=== PATIENT | female | born 1960 | race Caucasian/White ===

== ENCOUNTER → 2016-10-01 | Outpatient (CLI) | payer OTHER | LOC: KOH-I 09-05 15:15 | DX: M25.572 Pain in left ankle and joints of left foot (principal); R93.8 Abnormal findings on diagnostic imaging of other specified body structures | CPT/HCPCS: 73721 ==

== ENCOUNTER → 2020-05-02 | Outpatient (CLI) | payer OTHER ==
[~2020-05-02] MED LIST: ALPRAZOLAM0.5 MG PO; BACTRIM DS TAB1 EACH PO; BACTROBAN OINT22 GM EXT; CELEXA40 MG PO; CEPHALEXIN500 M1 PO; CYCLOBENZAPRINE10 MG PO; IBUPROFEN400 MG PO; IMODIUM A-1 MG/7.5 M PO; K-TAB ER20 MEQ PO; LEVOFLOXACIN500 MG PO; LODINE CAP 300300 MG PO; MIRALAX17 GM PO; MOBIC15 MG PO; MORPHINE SULFAT15 M1 PO; MYCOSTATIN CREA15 GM TOP; NEURONTIN600 MG PO; NORFLEX 100 MG100 MG PO; PEPCID40 MG PO; PHENERGAN 25 MG25 M1 PO; PROTONIX 40 MG40 M1 PO; PYRIDIUM100 MG PO; SILVADENE CREAM20 GM TOP; SINGULAIR10 MG PO; SYMBICORT 16010.2 GM INH; SYNTHROID25 MCG PO; TYLENOL325 M1 PO; VISTARIL 25 MG25 MG PO; VITAMIN D350 MCG PO; ZOFRAN ODT 4 MG4 MG PO; ZOFRAN ODT 4 MG4 MG SL; ZYRTEC10 M3 PO
== END ==
LOC: NM 04-11 09:00
DX: M54.9 Dorsalgia, unspecified (principal); M79.605 Pain in left leg; M79.604 Pain in right leg; C96.A Histiocytic sarcoma; R93.6 Abnormal findings on diagnostic imaging of limbs
CPT/HCPCS: 78306; A9503

== ENCOUNTER 2020-06-22 09:03 | Emergency (ER) | payer OTHER ==
[~2020-06-22 09:03] MED LIST changes: -LEVOFLOXACIN500 MG PO; -PROTONIX 40 MG40 M1 PO; -SILVADENE CREAM20 GM TOP
[2020-06-22] MEDS ORDERED: CEPHALEXIN500 M1 PO (11:56)
[2020-06-22] MEDS ORDERED: BACTROBAN OINT22 GM EXT (11:56)
== END 2020-06-22 12:10 | disposition home or self-care (01) ==
LOC: ER1 09:03
DX: L01.00 Impetigo, unspecified (principal); K21.9 Gastro-esophageal reflux disease without esophagitis; Z90.710 Acquired absence of both cervix and uterus; Z88.1 Allergy status to other antibiotic agents; Z91.040 Latex allergy status; Z88.8 Allergy status to other drugs, medicaments and biological substances; Z79.899 Other long term (current) drug therapy
CPT/HCPCS: 99282

== ENCOUNTER 2020-06-24 11:42 | Inpatient (IN) | payer OTHER ==
[~2020-06-24] VITALS: Ht 157.5 cm; Wt 81.6 kg
[2020-06-24 12:38] LABS: RED BLOOD COUNT 4.71 M/UL (4.00-5.10); WHITE BLOOD COUNT 23.4 K/UL (4.5-11.0)
[2020-06-24] MEDS ORDERED: PROTONIX 40 MG40 M1 PO (17:01)
[2020-06-25 01:33] LABS: RED BLOOD COUNT 4.39 M/UL (4.00-5.10)
[2020-06-25 01:56] LABS: WHITE BLOOD COUNT 38.6 K/UL (4.5-11.0)
[2020-06-25 03:40] LABS: ACINETOBACTER BAUMANNII Not Detected (Negative); CANDIDA ALBICANS Not Detected (Negative); CANDIDA KRUSEI Not Detected (Negative); CANDIDA TROPICALIS Not Detected (Negative); ENTEROCOCCUS Not Detected (Negative); ESCHERICHIA COLI Not Detected (Negative); HAEMOPHILUS INFLUENZAE Not Detected (Negative); KLEBSIELLA OXYTOCA Not Detected (Negative); KLEBSIELLA PNEUMONIAE Not Detected (Negative); KPC-CARBAPENEM-RESISTANCE GENE Not Detected (Negative); PROTEUS Not Detected (Negative); PSEUDOMONAS AERUGINOSA Not Detected (Negative); SERRATIA MARCESANS Not Detected (Negative); STAPHYLOCOCCUS Not Detected (Negative); STAPHYLOCOCCUS AUREUS Not Detected (Negative); STREP AGALACTIAE (GROUP B) Not Detected (Negative); mecA (METHICILLIN RESIST GENE Not Detected (Negative); vanA/B (VANCOMYCIN RESIST GENE Not Detected (Negative)
[2020-06-25 03:43] LABS: STREP PYOGENES (GROUP A) DETECTED (Negative); STREPTOCOCCUS DETECTED (Negative)
[2020-06-25 08:16] LABS: HEMOGLOBIN 13.2 gm/dl (12.3-15.3); RED BLOOD COUNT 4.5 M/UL (4.00-5.10)
[2020-06-25 08:29] LABS: WHITE BLOOD COUNT 30.8 K/UL (4.5-11.0)
[2020-06-25 14:32] LABS: HEMOGLOBIN 11.5 gm/dl (12.3-15.3); RED BLOOD COUNT 4.05 M/UL (4.00-5.10)
[2020-06-26 05:15] LABS: HEMOGLOBIN 11.1 gm/dl (12.3-15.3); RED BLOOD COUNT 3.82 M/UL (4.00-5.10); WHITE BLOOD COUNT 21.1 K/UL (4.5-11.0)
[2020-06-27 04:58] LABS: HEMOGLOBIN 10.7 gm/dl (12.3-15.3); RED BLOOD COUNT 3.66 M/UL (4.00-5.10); WHITE BLOOD COUNT 21.7 K/UL (4.5-11.0)
[2020-06-28 05:13] LABS: HEMOGLOBIN 9.9 gm/dl (12.3-15.3); RED BLOOD COUNT 3.49 M/UL (4.00-5.10); WHITE BLOOD COUNT 16.6 K/UL (4.5-11.0)
[2020-06-29 05:02] LABS: HEMOGLOBIN 8.5 gm/dl (12.3-15.3)
[2020-06-29 05:16] LABS: RED BLOOD COUNT 2.92 M/UL (4.00-5.10); WHITE BLOOD COUNT 11.9 K/UL (4.5-11.0)
[2020-06-29 15:11] LABS: HEMATOCRIT 27.1 % (34.0-46.6)
[2020-06-30 05:00] LABS: HEMOGLOBIN 8.4 gm/dl (12.3-15.3); RED BLOOD COUNT 2.92 M/UL (4.00-5.10); WHITE BLOOD COUNT 11.5 K/UL (4.5-11.0)
[2020-06-30 10:13] LABS: HBSAG SCREEN Negative (Negative); HEP B CORE AB, TOT Negative (Negative); HEP C VIRUS AB >11.0 (0.0-0.9)
[2020-06-30 12:13] LABS: ANTISTREPTOLYSIN O AB <20.0 IU/mL (0.0-200.0); COMPLEMENT C3, SERUM 109 mg/dL (82-167); COMPLEMENT C4, SERUM 17 mg/dL (12-38)
[2020-06-30 14:13] LABS: ANTI-DSDNA ANTIBODIES <1 IU/mL (0-9)
[2020-06-30 16:13] LABS: A/G RATIO 1.6 (0.7-1.7); ALBUMIN 3.1 g/dL (2.9-4.4); ALPHA-1-GLOBULIN 0.3 g/dL (0.0-0.4); ALPHA-2-GLOBULIN 0.6 g/dL (0.4-1.0); ATYPICAL PANCA <1:20 titer (Neg:<1:20); BETA GLOBULIN 0.6 g/dL (0.7-1.3); CYTOPLASMIC (C-ANCA) <1:20 titer (Neg:<1:20); GAMMA GLOBULIN 0.4 g/dL (0.4-1.8); IMMUNOGLOBULIN A, QN, SERUM 50 mg/dL (87-352); IMMUNOGLOBULIN G, QN, SERUM 402 mg/dL (586-1602); IMMUNOGLOBULIN M, QN, SERUM 62 mg/dL (26-217); M-SPIKE Not Observed g/dL (Not Observed); PERINUCLEAR (P-ANCA) <1:20 titer (Neg:<1:20); PROTEIN, TOTAL, SERUM 5.1 g/dL (6.0-8.5)
[2020-06-30 16:13] LABS: HEPARIN INDUCED PLATELET AB 0.092 OD (0.000-0.400)
[2020-07-01 05:01] LABS: HEMOGLOBIN 8.6 gm/dl (12.3-15.3); RED BLOOD COUNT 3.02 M/UL (4.00-5.10); WHITE BLOOD COUNT 12.7 K/UL (4.5-11.0)
[2020-07-02 05:03] LABS: HEMOGLOBIN 7.4 gm/dl (12.3-15.3); WHITE BLOOD COUNT 10.2 K/UL (4.5-11.0)
[2020-07-02 05:06] LABS: RED BLOOD COUNT 2.6 M/UL (4.00-5.10)
[2020-07-03 04:51] LABS: HEMOGLOBIN 7.3 gm/dl (12.3-15.3); RED BLOOD COUNT 2.53 M/UL (4.00-5.10); WHITE BLOOD COUNT 12.1 K/UL (4.5-11.0)
[2020-07-03 05:54] LABS: BUN/CREATININE RATIO 51 (0-10)
[2020-07-04 04:18] LABS: HEMOGLOBIN 8.9 gm/dl (12.3-15.3)
[2020-07-04 04:24] LABS: RED BLOOD COUNT 3.09 M/UL (4.00-5.10); WHITE BLOOD COUNT 16.6 K/UL (4.5-11.0)
[2020-07-04 04:46] LABS: BUN/CREATININE RATIO 46 (0-10)
[2020-07-05 09:36] LABS: RED BLOOD COUNT 3.15 M/UL (4.00-5.10); WHITE BLOOD COUNT 17.6 K/UL (4.5-11.0)
[2020-07-05 10:12] LABS: BUN/CREATININE RATIO 32 (0-10)
[2020-07-06 03:10] LABS: HEMOGLOBIN 8.9 gm/dl (12.3-15.3); RED BLOOD COUNT 3.09 M/UL (4.00-5.10); WHITE BLOOD COUNT 14.5 K/UL (4.5-11.0)
[2020-07-06 03:48] LABS: BUN/CREATININE RATIO 32 (0-10)
[2020-07-07 04:24] LABS: RED BLOOD COUNT 3.19 M/UL (4.00-5.10); WHITE BLOOD COUNT 16.9 K/UL (4.5-11.0)
[2020-07-07 04:41] LABS: BUN/CREATININE RATIO 29 (0-10)
[2020-07-08 04:13] LABS: HEMOGLOBIN 8.3 gm/dl (12.3-15.3); RED BLOOD COUNT 2.91 M/UL (4.00-5.10); WHITE BLOOD COUNT 15.1 K/UL (4.5-11.0)
[2020-07-08 04:36] LABS: BUN/CREATININE RATIO 26 (0-10)
[2020-07-09 03:52] LABS: RED BLOOD COUNT 2.74 M/UL (4.00-5.10)
[2020-07-09 04:18] LABS: BUN/CREATININE RATIO 18 (0-10)
--- NOTE | 2020-07-10 20:10 | NUR ---
PATIENT WANTING TO LEAVE AMA. CALLED THE DAUGHTER HITESH AND SHE HAD ALREADY DROVE TO THE HOSPITAL THE PATIENT HAD CALLED HER FOR A RIDE. THE DAUGHTER WAS ALSO ATTEMPTING TO TALK THE PATIENT INTO STAYING AT THE HOSPITAL. THE PATIENT STATED SHE DID NOT WANT TO GO TO REHAB. SHE, INDEED, HAD BEEN UP IN THE ROOM WITH A STEADY GAIT WITH THE ASSIST OF A WALKER. THE PATIENT IS ALERT AND ORIENTED AT THIS TIME. AFTER A LONG DISCUSSION WITH THE PATIENT AND HER DAUGHTER, THE CONCLUSION WAS MADE THAT SHE WOULD STAY AND THAT DAUGHTER WOULD MAKE ARRANGEMENTS FOR HER TO STAY AT HER HOME.
[2020-07-11] MEDS ORDERED: LEVOFLOXACIN500 MG PO (12:16)
[2020-07-11 12:31] LABS: HEMOGLOBIN 8.9 gm/dl (12.3-15.3)
[2020-07-11 12:42] LABS: RED BLOOD COUNT 3.09 M/UL (4.00-5.10); WHITE BLOOD COUNT 12.6 K/UL (4.5-11.0)
[2020-07-11 12:55] LABS: BUN/CREATININE RATIO 18 (0-10)
== END 2020-07-11 17:49 | disposition home or self-care (01) | DRG 870 ==
LOC: ER1 11:42 → CDU 16:10 → CCU 16:10 → MED SURG 4 16:10 → CCU 21:13 → MED SURG 4 07-04 16:57
PROVIDERS: Internal Medicine; Internal Medicine Infectious Disease; Internal Medicine Nephrology; Internal Medicine Pulmonary Disease; Physician Assistant Medical; Registered Nurse; ADMIT Internal Medicine
PROC: 5A1955Z Respiratory Ventilation, Greater than 96 Consecutive Hours (ICD-10-PCS; principal; 2020-06-24)
PROC: 0BH17EZ Insertion of Endotracheal Airway into Trachea, Via Natural or Artificial Opening (ICD-10-PCS; 2020-06-24)
DX: A41.9 Sepsis, unspecified organism (principal); R65.21 Severe sepsis with septic shock; J80 Acute respiratory distress syndrome; G93.41 Metabolic encephalopathy; K72.00 Acute and subacute hepatic failure without coma; J18.9 Pneumonia, unspecified organism; N17.0 Acute kidney failure with tubular necrosis; L03.115 Cellulitis of right lower limb; E87.2 Acidosis; E87.0 Hyperosmolality and hypernatremia; K50.90 Crohn's disease, unspecified, without complications; D76.3 Other histiocytosis syndromes; M87.9 Osteonecrosis, unspecified; N30.00 Acute cystitis without hematuria; M62.82 Rhabdomyolysis; E87.1 Hypo-osmolality and hyponatremia; C86.3 Subcutaneous panniculitis-like T-cell lymphoma; E87.6 Hypokalemia; D53.9 Nutritional anemia, unspecified; F32.9 Major depressive disorder, single episode, unspecified; I10 Essential (primary) hypertension; I73.9 Peripheral vascular disease, unspecified; R73.9 Hyperglycemia, unspecified; D75.82 Heparin induced thrombocytopenia (HIT); E83.42 Hypomagnesemia; F19.10 Other psychoactive substance abuse, uncomplicated; E88.09 Other disorders of plasma-protein metabolism, not elsewhere classified; Z20.822 Contact with and (suspected) exposure to COVID-19; Z85.820 Personal history of malignant melanoma of skin; Z85.07 Personal history of malignant neoplasm of pancreas; Z85.118 Personal history of other malignant neoplasm of bronchus and lung; Y92.89 Other specified places as the place of occurrence of the external cause; Z85.830 Personal history of malignant neoplasm of bone; Z85.72 Personal history of non-Hodgkin lymphomas; Z90.710 Acquired absence of both cervix and uterus; Z90.89 Acquired absence of other organs; Z87.891 Personal history of nicotine dependence; Z88.1 Allergy status to other antibiotic agents; Z91.040 Latex allergy status; Z85.038 Personal history of other malignant neoplasm of large intestine
CPT/HCPCS: ECHO; 31500; 36415; 36600; 70450; 71045; 71250; 73552; 73590; 73700; 76705; 80048; 80053; 80307; 81001; 82140; 82550; 82553; 82570; 82607; 82728; 82747; 82784; 82803; 82962; 83520; 83540; 83550; 83605; 83615; 83690; 83735; 83874; 83880; 83883; 83921; 84100; 84132; 84133; 84155; 84156; 84165; 84300; 84443; 84484; 85007; 85025; 85027; 85384; 85610; 85730; 86038; 86060; 86140; 86160; 86162; 86225; 86256; 86334; 86704; 86706; 86708; 86803; 87040; 87070; 87077; 87086; 87150; 87186; 87205; 87340; 87521; 89050; 92526; 92610; 93005; 93306; 93926; 93971; 94002; 94003; 94640; 94664; 94760; 96365; 96366; 96367; 96368; 96375; 97110; 97110-GP-CQ; 97116; 97116-GP-CQ; 97162; 97166; 97530; 97530-GP-CQ; 99285; C9113; G0008; J0171; J0696; J0878; J1120; J1205; J1335; J1644; J1650; J1652; J1940; J2020; J2060; J2185; J2248; J2250; J2310; J2370; J2405; J2543; J2704; J2765; J3010; J3370; J3475; J3480; J7030; J7040; J7050; J7070; J7121; P9047; Q9967; U0002

== ENCOUNTER → 2020-07-14 | Outpatient (CLI) | payer OTHER ==
[~2020-07-14] MED LIST changes: +LEVOFLOXACIN500 MG PO; +PROTONIX 40 MG40 M1 PO; +SILVADENE CREAM20 GM TOP
== END ==
LOC: WCC 08:26
PROC: 0JBN0ZZ Excision of Right Lower Leg Subcutaneous Tissue and Fascia, Open Approach (ICD-10-PCS; principal; 2020-07-14)
DX: I96 Gangrene, not elsewhere classified (principal); L97.812 Non-pressure chronic ulcer of other part of right lower leg with fat layer exposed; L03.115 Cellulitis of right lower limb; B95.0 Streptococcus, group A, as the cause of diseases classified elsewhere; I10 Essential (primary) hypertension; M19.90 Unspecified osteoarthritis, unspecified site; M86.9 Osteomyelitis, unspecified; G62.9 Polyneuropathy, unspecified; C96.6 Unifocal Langerhans-cell histiocytosis; Z88.1 Allergy status to other antibiotic agents; Z88.8 Allergy status to other drugs, medicaments and biological substances; Z87.891 Personal history of nicotine dependence

== ENCOUNTER 2020-07-20 01:42 | Emergency (ER) | payer OTHER ==
[~2020-07-20 01:42] MED LIST changes: -SILVADENE CREAM20 GM TOP
[2020-07-20 03:16] LABS: HEMOGLOBIN 8.8 gm/dl (12.3-15.3); RED BLOOD COUNT 3.05 M/UL (4.00-5.10); WHITE BLOOD COUNT 15.7 K/UL (4.5-11.0)
[2020-07-20 03:36] LABS: BUN/CREATININE RATIO 15 (0-10)
[2020-07-20] MEDS ORDERED: SILVADENE CREAM20 GM TOP (04:04)
== END 2020-07-20 06:55 | disposition home or self-care (01) ==
LOC: ER1 01:42
PROVIDERS: Family Medicine
DX: L08.9 Local infection of the skin and subcutaneous tissue, unspecified (principal); Z88.1 Allergy status to other antibiotic agents
CPT/HCPCS: 71045; 80053; 82550; 82553; 83605; 84484; 85025; 87040; 96374; 99283

== ENCOUNTER → 2020-07-22 | Outpatient (CLI) | payer OTHER ==
[~2020-07-22] MED LIST changes: +SILVADENE CREAM20 GM TOP
== END ==
LOC: WCC 09:00
PROC: 0KBS0ZZ Excision of Right Lower Leg Muscle, Open Approach (ICD-10-PCS; principal; 2020-07-22)
DX: I96 Gangrene, not elsewhere classified (principal); L97.813 Non-pressure chronic ulcer of other part of right lower leg with necrosis of muscle; L03.115 Cellulitis of right lower limb; I10 Essential (primary) hypertension; C96.6 Unifocal Langerhans-cell histiocytosis; L08.89 Other specified local infections of the skin and subcutaneous tissue; B95.0 Streptococcus, group A, as the cause of diseases classified elsewhere; M86.9 Osteomyelitis, unspecified; G62.9 Polyneuropathy, unspecified; Z88.1 Allergy status to other antibiotic agents; Z88.8 Allergy status to other drugs, medicaments and biological substances; Z79.2 Long term (current) use of antibiotics

== ENCOUNTER → 2020-07-29 | Outpatient (CLI) | payer OTHER | LOC: WCC 08:51 | DX: L03.115 Cellulitis of right lower limb (principal); I87.2 Venous insufficiency (chronic) (peripheral); I10 Essential (primary) hypertension; K50.90 Crohn's disease, unspecified, without complications; I73.9 Peripheral vascular disease, unspecified; C96.6 Unifocal Langerhans-cell histiocytosis; B95.0 Streptococcus, group A, as the cause of diseases classified elsewhere ==

== ENCOUNTER → 2020-08-19 | Outpatient (CLI) | payer OTHER | LOC: WCC 11:30 | DX: I87.2 Venous insufficiency (chronic) (peripheral) (principal); L97.815 Non-pressure chronic ulcer of other part of right lower leg with muscle involvement without evidence of necrosis; L03.115 Cellulitis of right lower limb; I10 Essential (primary) hypertension; I73.9 Peripheral vascular disease, unspecified; K50.90 Crohn's disease, unspecified, without complications; R53.1 Weakness; C96.6 Unifocal Langerhans-cell histiocytosis; B95.0 Streptococcus, group A, as the cause of diseases classified elsewhere; Z88.5 Allergy status to narcotic agent; Z88.1 Allergy status to other antibiotic agents; Z79.2 Long term (current) use of antibiotics ==

== ENCOUNTER → 2020-08-29 | Outpatient (CLI) | payer OTHER | LOC: WCC 13:00 | DX: I87.2 Venous insufficiency (chronic) (peripheral) (principal); L97.812 Non-pressure chronic ulcer of other part of right lower leg with fat layer exposed; L03.115 Cellulitis of right lower limb; I10 Essential (primary) hypertension; I73.9 Peripheral vascular disease, unspecified; K50.90 Crohn's disease, unspecified, without complications; R53.1 Weakness; C96.6 Unifocal Langerhans-cell histiocytosis; B95.0 Streptococcus, group A, as the cause of diseases classified elsewhere; Z88.1 Allergy status to other antibiotic agents; Z88.5 Allergy status to narcotic agent; Z79.2 Long term (current) use of antibiotics ==

== ENCOUNTER → 2020-09-13 | Outpatient (CLI) | payer OTHER | LOC: WCC 13:30 | DX: I87.2 Venous insufficiency (chronic) (peripheral) (principal); L97.815 Non-pressure chronic ulcer of other part of right lower leg with muscle involvement without evidence of necrosis; L03.115 Cellulitis of right lower limb; I10 Essential (primary) hypertension; I73.9 Peripheral vascular disease, unspecified; K50.90 Crohn's disease, unspecified, without complications; C96.6 Unifocal Langerhans-cell histiocytosis; B95.0 Streptococcus, group A, as the cause of diseases classified elsewhere; R53.1 Weakness; Z88.1 Allergy status to other antibiotic agents; Z88.5 Allergy status to narcotic agent; Z79.899 Other long term (current) drug therapy ==

== ENCOUNTER → 2020-09-27 | Outpatient (CLI) | payer OTHER | LOC: WCC 15:00 | DX: L97.815 Non-pressure chronic ulcer of other part of right lower leg with muscle involvement without evidence of necrosis (principal); I87.2 Venous insufficiency (chronic) (peripheral); L03.115 Cellulitis of right lower limb; B95.0 Streptococcus, group A, as the cause of diseases classified elsewhere; I10 Essential (primary) hypertension; M79.661 Pain in right lower leg; R53.1 Weakness; C96.6 Unifocal Langerhans-cell histiocytosis; K50.90 Crohn's disease, unspecified, without complications; I73.9 Peripheral vascular disease, unspecified; D53.9 Nutritional anemia, unspecified ==

== ENCOUNTER → 2020-10-06 | Outpatient (CLI) | payer OTHER | LOC: WCC 15:15 | DX: I87.2 Venous insufficiency (chronic) (peripheral) (principal); L97.825 Non-pressure chronic ulcer of other part of left lower leg with muscle involvement without evidence of necrosis; I73.9 Peripheral vascular disease, unspecified; L03.115 Cellulitis of right lower limb; I10 Essential (primary) hypertension; K50.90 Crohn's disease, unspecified, without complications; M79.661 Pain in right lower leg; R53.1 Weakness; C96.6 Unifocal Langerhans-cell histiocytosis; B95.0 Streptococcus, group A, as the cause of diseases classified elsewhere; Z88.1 Allergy status to other antibiotic agents; Z88.5 Allergy status to narcotic agent; Z79.899 Other long term (current) drug therapy ==

== ENCOUNTER → 2020-10-31 | Outpatient (CLI) | payer OTHER | LOC: WCC 10:56 | DX: I87.2 Venous insufficiency (chronic) (peripheral) (principal); L97.912 Non-pressure chronic ulcer of unspecified part of right lower leg with fat layer exposed; I73.9 Peripheral vascular disease, unspecified; D64.9 Anemia, unspecified; J96.90 Respiratory failure, unspecified, unspecified whether with hypoxia or hypercapnia; L03.115 Cellulitis of right lower limb; I10 Essential (primary) hypertension; K50.90 Crohn's disease, unspecified, without complications; M79.661 Pain in right lower leg; C96.6 Unifocal Langerhans-cell histiocytosis; L08.89 Other specified local infections of the skin and subcutaneous tissue; B95.0 Streptococcus, group A, as the cause of diseases classified elsewhere; R53.1 Weakness; Z88.1 Allergy status to other antibiotic agents; Z88.8 Allergy status to other drugs, medicaments and biological substances ==

== ENCOUNTER → 2020-11-25 | Outpatient (CLI) | payer OTHER | LOC: WCC 11:00 | DX: I87.2 Venous insufficiency (chronic) (peripheral) (principal); L97.812 Non-pressure chronic ulcer of other part of right lower leg with fat layer exposed; L03.115 Cellulitis of right lower limb; I10 Essential (primary) hypertension; I73.9 Peripheral vascular disease, unspecified; K50.90 Crohn's disease, unspecified, without complications; C96.6 Unifocal Langerhans-cell histiocytosis; R53.1 Weakness; B95.0 Streptococcus, group A, as the cause of diseases classified elsewhere; Z88.1 Allergy status to other antibiotic agents; Z88.5 Allergy status to narcotic agent; Z79.899 Other long term (current) drug therapy ==

== ENCOUNTER → 2021-01-06 | Outpatient (CLI) | payer OTHER | LOC: WCC 11:00 | DX: I87.2 Venous insufficiency (chronic) (peripheral) (principal); L97.812 Non-pressure chronic ulcer of other part of right lower leg with fat layer exposed; I73.9 Peripheral vascular disease, unspecified; L03.115 Cellulitis of right lower limb; C96.6 Unifocal Langerhans-cell histiocytosis; I10 Essential (primary) hypertension; K50.90 Crohn's disease, unspecified, without complications; R53.1 Weakness; Z87.891 Personal history of nicotine dependence; Z88.1 Allergy status to other antibiotic agents; Z88.5 Allergy status to narcotic agent; Z79.899 Other long term (current) drug therapy ==

== ENCOUNTER → 2021-02-02 | Outpatient (CLI) | payer OTHER | LOC: WCC 08:03 | DX: L97.212 Non-pressure chronic ulcer of right calf with fat layer exposed (principal); L03.115 Cellulitis of right lower limb; I73.9 Peripheral vascular disease, unspecified; I10 Essential (primary) hypertension; K50.90 Crohn's disease, unspecified, without complications; M79.661 Pain in right lower leg; R53.1 Weakness; C96.6 Unifocal Langerhans-cell histiocytosis ==

== ENCOUNTER → 2021-02-02 | Outpatient (CLI) | payer OTHER | LOC: KOH-I 13:00 | DX: R22.1 Localized swelling, mass and lump, neck (principal) | CPT/HCPCS: 76536 ==

== ENCOUNTER → 2021-04-12 | Outpatient (CLI) | payer OTHER | LOC: WCC 09:33 | DX: L97.812 Non-pressure chronic ulcer of other part of right lower leg with fat layer exposed (principal); I73.9 Peripheral vascular disease, unspecified; L03.115 Cellulitis of right lower limb; I10 Essential (primary) hypertension; K50.90 Crohn's disease, unspecified, without complications; M79.661 Pain in right lower leg; R53.1 Weakness; C96.6 Unifocal Langerhans-cell histiocytosis; Z91.19 Patient's noncompliance with other medical treatment and regimen; Z88.1 Allergy status to other antibiotic agents; Z88.0 Allergy status to penicillin; Z88.8 Allergy status to other drugs, medicaments and biological substances ==

== ENCOUNTER → 2021-06-12 | Outpatient (CLI) | payer OTHER | LOC: WCC 07:21 | DX: I87.2 Venous insufficiency (chronic) (peripheral) (principal); L97.816 Non-pressure chronic ulcer of other part of right lower leg with bone involvement without evidence of necrosis; I73.9 Peripheral vascular disease, unspecified; L97.212 Non-pressure chronic ulcer of right calf with fat layer exposed; I10 Essential (primary) hypertension; K50.90 Crohn's disease, unspecified, without complications; R53.1 Weakness; C96.6 Unifocal Langerhans-cell histiocytosis; D63.0 Anemia in neoplastic disease; Z91.19 Patient's noncompliance with other medical treatment and regimen; Z88.1 Allergy status to other antibiotic agents; Z88.6 Allergy status to analgesic agent ==

== ENCOUNTER → 2021-06-22 | Outpatient (CLI) | payer OTHER | END | disposition home or self-care (01) | LOC: WCC 07:35 | DX: L97.812 Non-pressure chronic ulcer of other part of right lower leg with fat layer exposed (principal); E11.622 Type 2 diabetes mellitus with other skin ulcer; I10 Essential (primary) hypertension; Z79.4 Long term (current) use of insulin ==

== ENCOUNTER → 2021-06-29 | Outpatient (CLI) | payer OTHER | LOC: WCC 08:21 | DX: I87.2 Venous insufficiency (chronic) (peripheral) (principal); L97.812 Non-pressure chronic ulcer of other part of right lower leg with fat layer exposed; I73.9 Peripheral vascular disease, unspecified; I10 Essential (primary) hypertension; K50.90 Crohn's disease, unspecified, without complications; R53.1 Weakness; C96.6 Unifocal Langerhans-cell histiocytosis; Z91.19 Patient's noncompliance with other medical treatment and regimen; Z88.1 Allergy status to other antibiotic agents; Z88.5 Allergy status to narcotic agent; Z79.899 Other long term (current) drug therapy ==

== ENCOUNTER → 2021-07-05 | Outpatient (CLI) | payer OTHER | END | disposition home or self-care (01) | LOC: WCC 08:32 | DX: I87.2 Venous insufficiency (chronic) (peripheral) (principal); L97.812 Non-pressure chronic ulcer of other part of right lower leg with fat layer exposed; I73.9 Peripheral vascular disease, unspecified; I10 Essential (primary) hypertension; K50.90 Crohn's disease, unspecified, without complications; M79.661 Pain in right lower leg; R53.1 Weakness; C96.6 Unifocal Langerhans-cell histiocytosis; Z91.19 Patient's noncompliance with other medical treatment and regimen; Z79.899 Other long term (current) drug therapy ==

== ENCOUNTER → 2021-07-05 | Outpatient (CLI) | payer OTHER | LOC: RAD 12:17 | DX: L97.212 Non-pressure chronic ulcer of right calf with fat layer exposed (principal); M79.661 Pain in right lower leg | CPT/HCPCS: 73590 ==

== ENCOUNTER → 2021-07-19 | Outpatient (CLI) | payer OTHER | LOC: WCC 08:46 | DX: I87.2 Venous insufficiency (chronic) (peripheral) (principal); L97.212 Non-pressure chronic ulcer of right calf with fat layer exposed; I73.9 Peripheral vascular disease, unspecified; I10 Essential (primary) hypertension; K50.90 Crohn's disease, unspecified, without complications; M79.661 Pain in right lower leg; R53.1 Weakness; C96.6 Unifocal Langerhans-cell histiocytosis; Z91.19 Patient's noncompliance with other medical treatment and regimen ==

== ENCOUNTER → 2021-07-28 | Outpatient (CLI) | payer OTHER | LOC: WCC 06:46 | DX: I87.2 Venous insufficiency (chronic) (peripheral) (principal); L97.212 Non-pressure chronic ulcer of right calf with fat layer exposed; I73.9 Peripheral vascular disease, unspecified; I10 Essential (primary) hypertension; K50.90 Crohn's disease, unspecified, without complications; M79.661 Pain in right lower leg; R53.1 Weakness; C96.6 Unifocal Langerhans-cell histiocytosis; Z91.19 Patient's noncompliance with other medical treatment and regimen ==

== ENCOUNTER → 2021-08-03 | Outpatient (CLI) | payer OTHER | END | disposition home or self-care (01) | LOC: WCC 06:59 | DX: I87.2 Venous insufficiency (chronic) (peripheral) (principal); L97.812 Non-pressure chronic ulcer of other part of right lower leg with fat layer exposed; I73.9 Peripheral vascular disease, unspecified; I10 Essential (primary) hypertension; M79.661 Pain in right lower leg; K50.90 Crohn's disease, unspecified, without complications; R53.1 Weakness; C96.6 Unifocal Langerhans-cell histiocytosis; Z91.19 Patient's noncompliance with other medical treatment and regimen; Z79.899 Other long term (current) drug therapy ==

== ENCOUNTER → 2021-08-28 | Outpatient (CLI) | payer OTHER | END | disposition home or self-care (01) | LOC: WCC 07:33 | DX: I87.2 Venous insufficiency (chronic) (peripheral) (principal); L97.812 Non-pressure chronic ulcer of other part of right lower leg with fat layer exposed; I73.9 Peripheral vascular disease, unspecified; I10 Essential (primary) hypertension; M79.661 Pain in right lower leg; K50.90 Crohn's disease, unspecified, without complications; C96.6 Unifocal Langerhans-cell histiocytosis; D64.9 Anemia, unspecified; R53.1 Weakness; Z91.19 Patient's noncompliance with other medical treatment and regimen; Z79.899 Other long term (current) drug therapy ==

== ENCOUNTER → 2021-09-14 | Outpatient (CLI) | payer OTHER | LOC: KOH-I 11:00 | DX: C96.A Histiocytic sarcoma (principal); R63.4 Abnormal weight loss; R59.9 Enlarged lymph nodes, unspecified; R10.9 Unspecified abdominal pain | CPT/HCPCS: 73700 ==

== ENCOUNTER 2021-09-24 12:38 | Emergency (ER) | payer OTHER ==
[2021-09-24 13:31] LABS: HEMOGLOBIN 13.8 gm/dl (12.3-15.3); RED BLOOD COUNT 4.65 M/UL (4.00-5.10); WHITE BLOOD COUNT 9.3 K/UL (4.5-11.0)
[2021-09-24] MEDS ORDERED: ZOFRAN 4 MG TAB4 MG PO (15:29)
[2021-09-24] MEDS ORDERED: MACROBID 100 M100 MG PO (15:29)
== END 2021-09-24 16:30 | disposition home or self-care (01) ==
LOC: ER1 12:38
DX: R53.1 Weakness (principal); N39.0 Urinary tract infection, site not specified; I10 Essential (primary) hypertension; F17.210 Nicotine dependence, cigarettes, uncomplicated; Z88.1 Allergy status to other antibiotic agents; Z91.040 Latex allergy status; Z88.0 Allergy status to penicillin
CPT/HCPCS: 80053; 81001; 83690; 84484; 85025; 96360; 99284; J1642

== ENCOUNTER → 2021-09-27 | Outpatient (CLI) | payer OTHER ==
[~2021-09-27] MED LIST changes: +MACROBID 100 M100 MG PO; +ZOFRAN 4 MG TAB4 MG PO
== END | disposition home or self-care (01) ==
LOC: WCC 14:00
DX: I87.2 Venous insufficiency (chronic) (peripheral) (principal); L97.812 Non-pressure chronic ulcer of other part of right lower leg with fat layer exposed; I10 Essential (primary) hypertension; K50.90 Crohn's disease, unspecified, without complications; M79.661 Pain in right lower leg; R53.1 Weakness; C96.6 Unifocal Langerhans-cell histiocytosis; Z91.19 Patient's noncompliance with other medical treatment and regimen; Z79.899 Other long term (current) drug therapy

== ENCOUNTER → 2021-10-30 | Outpatient (CLI) | payer OTHER | LOC: WCC 07:45 | DX: I87.2 Venous insufficiency (chronic) (peripheral) (principal); L97.212 Non-pressure chronic ulcer of right calf with fat layer exposed; I73.9 Peripheral vascular disease, unspecified; I10 Essential (primary) hypertension; K50.90 Crohn's disease, unspecified, without complications; R53.1 Weakness; C96.6 Unifocal Langerhans-cell histiocytosis; Z91.19 Patient's noncompliance with other medical treatment and regimen | CPT/HCPCS: G0463 ==

== ENCOUNTER 2021-11-27 03:48 | Emergency (ER) | payer OTHER ==
[2021-11-27 05:34] LABS: HEMOGLOBIN 15.4 gm/dl (12.3-15.3); RED BLOOD COUNT 5.09 M/UL (4.00-5.10); WHITE BLOOD COUNT 23.4 K/UL (4.5-11.0)
[2021-11-27 06:01] LABS: BUN/CREATININE RATIO 23 (0-10)
[2021-11-27] MEDS ORDERED: ZOFRAN 4 MG TAB4 MG PO (12:19)
[2021-11-27] MEDS ORDERED: HYDROCODON-ACE1 EAC4 PO (12:19)
== END 2021-11-27 12:32 | disposition home or self-care (01) ==
LOC: ER1 03:48
PROVIDERS: Student in an Organized Health Care Education/Training Program
DX: R10.9 Unspecified abdominal pain (principal); R11.0 Nausea; R10.811 Right upper quadrant abdominal tenderness; I10 Essential (primary) hypertension; F17.290 Nicotine dependence, other tobacco product, uncomplicated
CPT/HCPCS: 71045; 76705; 80053; 81001; 82550; 82553; 83690; 84484; 85025; 96374; 96376; 99284; J2270; Q9967